=== PATIENT | female | born 1950 | race Caucasian/White ===

== ENCOUNTER → 2023-03-23 | Outpatient (CLI) | payer MEDICARE, OTHER ==
[2023-03-23 10:44] LABS: POTASSIUM 4.1 mmol/L (3.5-5.1)
== END ==
LOC: LAB 08:32
DX: E03.9 Hypothyroidism, unspecified (principal); E10.65 Type 1 diabetes mellitus with hyperglycemia

== ENCOUNTER → 2023-04-04 | Outpatient (CLI) | payer MEDICARE, OTHER ==
[2023-04-04 12:47] LABS: BASO # 0.05 K/mm3 (0.02-0.10); EOS # 0.34 K/mm3 (0.04-0.40); EOS % 3.9 % (1.0-5.0); HEMATOCRIT 41.6 % (37.0-47.0); HEMOGLOBIN 13.4 g/dL (12.5-16.0); LYMPH# 4.63 K/mm3 (1.50-4.00); MEAN CELL VOLUME 95 fl (78-100); MEAN CORPUSCULAR HEMOGLOBIN 31 pg (27-31); MEAN CORPUSCULAR HGB CONC 32 g/dL (33-37); MEAN PLATELET VOLUME 11.9 fl (7.4-10.4); MONO # 0.62 K/mm3 (0.20-0.80); NEU # 3.08 K/mm3 (1.40-6.50); PLATELET COUNT 205 K/mm3 (130-400); WHITE BLOOD COUNT 8.7 K/mm3 (4.8-10.8)
[2023-04-04 12:57] LABS: ALBUMIN 4.1 g/dL (3.4-4.8)
[2023-04-04 12:59] LABS: CALCIUM 10.1 mg/dL (8.3-10.5)
[2023-04-04 13:00] LABS: TOTAL PROTEIN 7.3 g/dL (6.2-8.1)
[2023-04-04 13:02] LABS: TOTAL BILIRUBIN 0.7 mg/dL (0.2-1.2)
[2023-04-04 22:21] LABS: HEPATITIS C VIRUS ANTIBODY Negative (Negative)
== END ==
LOC: LAB 12:19
PROVIDERS: Physician Assistant
DX: Z00.00 Encounter for general adult medical examination without abnormal findings (principal); Z23 Encounter for immunization; Z13.39 Encounter for screening examination for other mental health and behavioral disorders; Z11.59 Encounter for screening for other viral diseases; E03.9 Hypothyroidism, unspecified; M25.561 Pain in right knee; M25.562 Pain in left knee; L40.9 Psoriasis, unspecified; L40.50 Arthropathic psoriasis, unspecified; I49.9 Cardiac arrhythmia, unspecified; E11.9 Type 2 diabetes mellitus without complications; M25.551 Pain in right hip; M25.552 Pain in left hip; E78.5 Hyperlipidemia, unspecified; K90.9 Intestinal malabsorption, unspecified

== ENCOUNTER → 2024-04-09 | Outpatient (CLI) | payer MEDICARE ==
[2024-04-09 12:56] LABS: CALCIUM 10.4 mg/dL (8.3-10.5)
== END ==
LOC: LAB 12:14
PROVIDERS: Internal Medicine
DX: E78.00 Pure hypercholesterolemia, unspecified (principal); E03.9 Hypothyroidism, unspecified; E10.65 Type 1 diabetes mellitus with hyperglycemia

== ENCOUNTER → 2024-04-09 | Outpatient (CLI) | payer MEDICARE ==
[2024-04-09 12:45] LABS: HEMATOCRIT 42.3 % (37.0-47.0); HEMOGLOBIN 13.7 g/dL (12.5-16.0); MEAN CELL VOLUME 94 fl (78-100); MEAN CORPUSCULAR HEMOGLOBIN 30 pg (27-31); MEAN CORPUSCULAR HGB CONC 32 g/dL (33-37); MEAN PLATELET VOLUME 12.5 fl (7.4-10.4); PLATELET COUNT 201 K/mm3 (130-400); RED BLOOD COUNT 4.52 M/mm3 (4.10-5.30)
[2024-04-09 13:24] LABS: LYMPHOCYTE 49 % (20-51); MONOCYTE 9 % (3-10); NEUTROPHILS 39 % (42-75)
== END ==
LOC: LAB 12:08
PROVIDERS: Physician Assistant
DX: E78.5 Hyperlipidemia, unspecified (principal); K90.9 Intestinal malabsorption, unspecified

== ENCOUNTER → 2024-05-07 | Outpatient (CLI) | payer MEDICARE | LOC: MAMMO 14:50 | DX: Z12.31 Encounter for screening mammogram for malignant neoplasm of breast (principal) ==

== ENCOUNTER → 2024-07-23 | Outpatient (CLI) | payer MEDICARE ==
[2024-07-23 12:31] LABS: CALCIUM 9.7 mg/dL (8.3-10.5)
== END ==
LOC: LAB 12:00
PROVIDERS: Internal Medicine
DX: E03.9 Hypothyroidism, unspecified (principal)